=== PATIENT | male | born 1955 | race Caucasian/White ===

== ENCOUNTER 2017-12-26 07:29 | Day surgery (SDC) | payer OTHER, SELFPAY ==
[2017-12-19 13:16] VITALS: BMI 32.6
--- NOTE | 2017-12-26 08:32 | PM.PREOP ---
Pre-operative Note Interval Note Pre-op Check: Yes History & Physical Reviewed by Physician and Yes Exam Performed Changes: No
[2017-12-26] MEDS: LACTATED RINGERS 1,000 ML 42 ML IV (08:43)
[2017-12-26 08:47] VITALS: BP 130/81; PULSE 71; RESP 12; TEMP 36.2; O2SAT 98; BMI 32.6
[2017-12-26] MEDS: CEFAZOLIN 2 GM/100 ML FROZ.PIGGY IV (09:00)
--- NOTE | 2017-12-26 09:16 | SUR.OPER ---
Supine on padded OR bed, head on pillow, arms secured on padded arm boards at <90 degrees abduction, legs uncrossed, safety belt at thigh, tape over blanket over lower legs.
[2017-12-26] MEDS: BUPIVACAINE 0.25% (PF) VIAL 30 ML INJ (09:24)
[2017-12-26] MEDS: SODIUM CHLORIDE IRRIG SOLUTION 3,000 ML, EPINEPHrine 1 MG IRR (09:25)
[2017-12-26 10:37] VITALS: BP 107/77; PULSE 75; RESP 11; TEMP 36.2; O2SAT 97
--- NOTE | 2017-12-26 10:37 | PM.OP.1 ---
Operative Date/Time/Diagnoses Date of procedure: 12/26/17 Time of procedure: 08:57 Pre-op diagnosis: Left knee medial meniscus tear Post-op diagnosis: same Procedure & Clinicians Procedure: Left knee arthroscopic medial meniscus debridement Left knee arthroscopic synovectomy and fat pad debridement Same procedure as scheduled: Yes Indications: This is a 62-year-old male who began having medial sided knee pain in July 2017. It all began after a very mahad day out on his boat while fishing. He had episodic sharp pain medially and an aching sensation between the episodic pain. There been some effusions. His physical exam was concerning for a medial meniscus tear and the MRI showed a tear of the posterior horn that involved the medial meniscus root. His indication for surgery was potentially a root repair and a meniscus debridement if unrepairable. The risks, benefits, alternatives to surgery were discussed. The risks included pain, bleeding, infection, damage to nearby structures, lack of symptom relief, need for further procedures, DVT, PE, anesthetic risks. He signed a consent form. Surgeon: Hiram Dhaliwal Refrigeration Supervisor: Rainer Khan Click Yes if Unassisted: No Anesthesia Type: General and Local Operative Notes Findings: Examination under anesthesia: Range of motion 0-130 degrees. Stable to varus and valgus stressing at 0 and 30?. 1A Hakeem's. Negative pivot shift. Negative anterior drawer posterior drawer. Stable dial at 30 and 90?. Diagnostic arthroscopy: patellofemoral joint showed grade 1 softening with a few superficial cartilage lesions. The medial and lateral gutters were without loose body. Medial evangelina joint showed the femoral cartilage be intact and grade 1 softening of the tibial cartilage. The medial meniscus had a complex displaced tear involving the body posterior horn and a portion of the meniscal root. The root largely remained intact. And the complex tear was debrided. ACL intact. PCL intact. The notch showed large amount of fat pad and synovium that was debrided for both therapeutic and for visualization. The lateral hemijoint showed the meniscus to be intact with the femoral and tibial cartilage to be intact. Closure Type: primary Specimen(s): none sent Estimated Blood Loss (mL): 5 Blood products transfused: none Tourniquet time (min): 57 Procedure in detail: The patient was met in the preoperative hold area on the day of the procedure. Operative extremity was signed. Consent was verified. He desired to proceed. He was brought to the operating room and surrendered anesthesia. Once general anesthesia been obtained and examination under anesthesia was performed. He was then prepped and draped in the standard sterile fashion and a surgical time-out was held to confirm the patient procedure, identity, allergies, images, antibiotics. All were in agreement we proceeded. An Esmarch was used to exsanguinate the limb and the tourniquet was elevated 250 mm of mercury. A standard diagnostic arthroscopy was performed utilizing anterolateral and anteromedial portal sites. The anteromedial portal was created under direct visualization. I used a sucker shaver device to debride a portion of the fat pad and synovium. I then used a combination of 3.5 mm shaver and various biting devices to debride the inferior leaflet of the horizontal posterior horn tear as well as the free edge of the superior leaf that which was very thin and degenerative. I also used the probe to un flipped a portion of the meniscus body that was torn and scarred to the underside of the meniscus. I additionally used a biter to remove all unstable portions of the meniscus root and finalize my debridement with the sucker shaver. I took care to keep the device off of the cartilage and used a smaller shaving device to protect the cartilage. Satisfied with the debridement final images were taken and all fluid and instruments were removed from the knee. 3-0 Monocryl was placed under the skin for closure and Steri-Strips were applied. 15 cc of 0.25% Marcaine were placed about the incisions and a sterile dressing was placed. He was transferred to the recovery room without issue. Complications: none Condition: stable Disposition: same day surgery Plan for aftercare: Weight bear as tolerated. No impact activities until 6 weeks.
[2017-12-26 10:39] VITALS: BP 108/71; PULSE 72; RESP 9; O2SAT 94
[2017-12-26 10:41] VITALS: BP 130/83; PULSE 76; RESP 9; O2SAT 96
[2017-12-26 10:44] VITALS: BP 103/67; PULSE 83; RESP 14; TEMP 36.6; O2SAT 97
[2017-12-26 10:59] VITALS: BP 115/78; PULSE 76; RESP 16; TEMP 36.4; O2SAT 95
[2017-12-26] MEDS: OXYCODONE/ACETAMINOPHEN 5/325 TABLET 1 TAB PO (11:15)
== END 2017-12-26 11:31 | disposition home or self-care (01) ==
PROVIDERS: PCP Physician Assistant; Visit Provider Orthopaedic Surgery
PROC: (CPT 29870; principal; 2017-12-26 08:45)
DX: S83.242A Other tear of medial meniscus, current injury, left knee, initial encounter (principal)
CPT/HCPCS: 29881; J0171; J0690; J1100; J2405; J2704; J3010

== ENCOUNTER → 2020-05-19 07:43 | Outpatient (CLI) | payer MEDICARE, OTHER, SELFPAY ==
[2020-05-19 09:26] LABS: Add Manual Diff / Slide Review NO; Basophils Absolute Auto 0 /uL (0-100); Basophils Percent Auto 0.9 % (0-2); Eosinophils Absolute Auto 100 /uL (0-450); Eosinophils Percent Auto 1.9 % (2-4); Hematocrit 42.1 % (41-53); Lymphocytes Absolute Auto 1500 /uL (1100-4500); Lymphocytes Percent Auto 27.2 % (25-40); Mean Corpuscular HGB Conc 33.2 % (30-36); Mean Corpuscular Hemoglobin 29.8 PG (26-34); Mean Corpuscular Volume 89.6 fL (80-100); Monocytes Absolute Auto 400 /uL (0-900); Neutrophils Absolute Auto 3400 /uL (1500-7000); Platelet Count 228 X10^3/uL (150-400); Red Blood Cell Count 4.69 X10^6/uL (4.5-5.9); Red Cell Distribution Width 13.7 % (11.6-14.8); White Blood Cell Count 5.5 X10^3/uL (4.5-11.0)
[2020-05-19 09:52] LABS: Alanine Aminotransferase 24 IU/L (<50); Albumin 4.2 g/dL (3.5-5.0); Albumin Globulin Ratio 1.4 (1.0-2.8); Alkaline Phosphatase 76 U/L (38-126); Aspartate Aminotransferase 24 IU/L (17-59); BUN Creatinine Ratio 20.4 (6-22); Bilirubin Total 0.7 mg/dL (0.2-1.3); Blood Urea Nitrogen 20 mg/dL (9-20); Carbon Dioxide 27 mmol/L (22-32); Chloride 105 mmol/L (98-107); Cholesterol 179 mg/dL (140-199); Estimated Glomerular Filt Rate > 60.0 mL/min (>60); Globulin 3.1 g/dL (1.7-4.1); Glucose 104 mg/dL (80-110); HDL Cholesterol 39 mg/dL (40-60); HEMOLYSIS < 15 (0-50); LDL Cholesterol Calculated 128 mg/dL (<100); Potassium 4.1 mmol/L (3.4-5.1); Sodium 137 mmol/L (137-145); Total Protein 7.3 g/dL (6.3-8.2); Triglycerides 60 mg/dL (35-150)
[2020-05-19 09:54] LABS: Hemoglobin A1C% w Est Avg Glu 6.3 % (4.0-6.0)
[2020-05-19 10:21] LABS: TSH w/ Reflex to FT4 1.31 uIU/mL (0.47-4.68)
== END ==
PROVIDERS: PCP Family Medicine; Referring Provider Family Medicine; Visit Provider Family Medicine
DX: I10 Essential (primary) hypertension (principal); R73.03 Prediabetes; K22.70 Barrett's esophagus without dysplasia; R53.83 Other fatigue
CPT/HCPCS: 36415; 80053; 80061; 83036; 84443; 85025

== ENCOUNTER → 2020-05-31 09:51 | Outpatient (CLI) | payer MEDICARE, OTHER, SELFPAY ==
[2020-05-31 11:15] LABS: COVID19 -Nasal RAPID Negative (Negative)
== END ==
PROVIDERS: PCP Family Medicine; Visit Provider Nurse Practitioner
DX: Z01.812 Encounter for preprocedural laboratory examination (principal); Z20.822 Contact with and (suspected) exposure to COVID-19
CPT/HCPCS: 87635; C9803

== ENCOUNTER → 2020-06-01 07:28 | Outpatient (CLI) | payer MEDICARE, OTHER, SELFPAY ==
--- NOTE | 2020-06-01 08:45 | PM.TREADMILL ---
Cardiac Stress Test Report Referral & Results Date Patient Seen: 06/01/20 Time Patient Seen: 08:30 Requesting provider: Bam Vee Indication: Exercise intolerance Rest ECG: Normal sinus rhythm, rare PACs Procedure Note: Today following both written and verbal informed consent, the patient was exercised according to a standard Paul protocol. The patient exercised for a total of 6 minutes 50 seconds achieving a maximum heart rate of 144. Patient's maximum systolic blood pressure was 172. This was an estimated 10.1 METs. Marked exercise intolerance (FA I +40% on active scale). ST elevations in inferior leads at peak exercise; slow to resolve at rest. Prolonged bigeminy and peak exercise. Presenting symptoms of shortness of breath and fatigue for easily reproduced at exertion. Otherwise normal hemodynamic response to exercise. Impression: High probability for ischemia and exercise-induced arrhythmia. Recommend prompt cardiology referral. Please note: Actual ECG tracings can be found in the PACS system.
== END ==
PROVIDERS: PCP Family Medicine; Referring Provider Family Medicine; Visit Provider Family Medicine
DX: R53.83 Other fatigue (principal); K22.70 Barrett's esophagus without dysplasia; I10 Essential (primary) hypertension; R73.03 Prediabetes
CPT/HCPCS: 93016; 93017; 93018

== ENCOUNTER → 2020-06-29 08:40 | Outpatient (CLI) | payer MEDICARE, OTHER, SELFPAY ==
[2020-06-29 10:01] LABS: Alanine Aminotransferase 20 IU/L (<50); Albumin 4.1 g/dL (3.5-5.0); Albumin Globulin Ratio 1.2 (1.0-2.8); Alkaline Phosphatase 76 U/L (38-126); Aspartate Aminotransferase 26 IU/L (17-59); BUN Creatinine Ratio 21.9 (6-22); Bilirubin Total 0.2 mg/dL (0.2-1.3); Blood Urea Nitrogen 25 mg/dL (9-20); Carbon Dioxide 25 mmol/L (22-32); Chloride 106 mmol/L (98-107); Estimated Glomerular Filt Rate > 60.0 mL/min (>60); Globulin 3.3 g/dL (1.7-4.1); Glucose 111 mg/dL (80-110); HEMOLYSIS < 15 (0-50); Potassium 4.2 mmol/L (3.4-5.1); Sodium 138 mmol/L (137-145); Total Protein 7.4 g/dL (6.3-8.2)
== END ==
PROVIDERS: PCP Family Medicine; Referring Provider Family Medicine; Visit Provider Family Medicine
DX: I25.9 Chronic ischemic heart disease, unspecified (principal)
CPT/HCPCS: 36415; 80053

== ENCOUNTER → 2020-07-13 07:59 | Outpatient (CLI) | payer MEDICARE, OTHER, SELFPAY ==
--- NOTE | 2020-07-13 08:00 | DI.US.S_ITS ---
PROCEDURE: US ABDOMEN COMPLETE INDICATIONS: PAIN TECHNIQUE: Real-time scanning was performed of the abdominal and retroperitoneal organs, with image documentation. COMPARISON: None. FINDINGS: Liver: Liver is normal in size and homogeneous in echotexture. Gallbladder: Normally distended without wall thickening, sludge, stone, or pericholecystic fluid. Biliary ducts: Normal caliber. Pancreas: There is an approximately 5 millimeter hypoechoic focus in the pancreatic body anteriorly, nonspecific. Otherwise normal pancreas. Spleen: Spleen is normal in size and homogeneous in echotexture. Kidneys: Normal size and appearance. No shadowing calculus or hydronephrosis. Aorta: Visualized aorta is normal in caliber at less than 3 cm. Iliacs: Proximal common iliac arteries are normal in caliber at less than 2.5 cm. IVC: Intrahepatic inferior vena cava is patent. Miscellaneous: No free abdominal fluid. IMPRESSION: No acute finding. Approximately 5 millimeter hypoechoic focus in the anterior pancreatic body is nonspecific. This is favored to represent either a simple cyst or small IPMN. A follow-up pancreatic protocol CT is recommended in 2 years to document stability, per ACR recommendations. Dictated by: Roel Coley M.D. on 07/13/2020 at 8:58 Approved by: Roel Coley M.D. on 07/13/2020 at 9:18
== END ==
PROVIDERS: PCP Family Medicine; Referring Provider Family Medicine; Visit Provider Family Medicine
DX: R10.13 Epigastric pain (principal)
CPT/HCPCS: 76700

== ENCOUNTER → 2020-11-26 07:05 | Outpatient (CLI) | payer MEDICARE, OTHER, SELFPAY ==
[2020-11-26 09:37] LABS: Cholesterol 92 mg/dL (140-199); HDL Cholesterol 39 mg/dL (40-60); LDL Cholesterol Calculated 42 mg/dL (<100); Triglycerides 56 mg/dL (35-150)
== END ==
PROVIDERS: PCP Family Medicine; Referring Provider Family Medicine; Visit Provider Family Medicine
DX: E78.2 Mixed hyperlipidemia (principal)
CPT/HCPCS: 36415; 80061

== ENCOUNTER → 2021-03-18 08:31 | Outpatient (CLI) | payer MEDICARE, OTHER, SELFPAY ==
--- NOTE | 2021-03-18 08:33 | DI.ECHO.S_ITS ---
[place] +---------+ [facility] +---------+ : : [address] : : : : [id number] : : : : Phone: [phone]+ Echocardiogram Report + + :Name: ALMA KWOK Study Date: 03/18/2021 Height: 72 in : :[facility] ReadingLocation: Weight: 230 lb : : Gender: Male BSA: 2.3 m2 : :: 1955 Age: 66 yrs BP: 129/83 mmHg: :Reason For Study: ATHEROSCLEROTIC HEART DISEASE : :Ordering Physician: QUINTIN, : :MALINA Performed By: Vickie Styles : :Referring: MALINA RIBEIRO : + + Interpretation Summary Left ventricular ejection fraction is estimated to be 55 +/- 5%. Left ventricular wall motion is normal. Left ventricular systolic function has mildly improved compared to the previous exam. A patent foramen ovale is suspected. There is mild tricuspid regurgitation. Procedure: A two-dimensional transthoracic echocardiogram with color flow and Doppler was performed. The study quality was technically adequate. A contrast injection of Definity was performed to improve assessment of LV function. Comparison is made with the echocardiogram of 06/10/2020. The patient was in sinus rhythm with heart rates between 58-65 bpm during the exam. Left Ventricle: The left ventricle is normal in size and wall thickness. Left ventricular ejection fraction is estimated to be 55 +/- 5%. Left ventricular systolic function has mildly improved compared to the previous exam. Left ventricular wall motion is normal. Right Ventricle: The right ventricle is normal in size and function. Atria: The left atrial size is normal. Right atrial size is normal. A patent foramen ovale is suspected. Mitral Valve: There is mild mitral annular calcification. There is trace mitral regurgitation. Aortic Valve: The aortic valve is trileaflet. The aortic valve opens well. There is no aortic valve stenosis. No aortic regurgitation is present. Tricuspid Valve: The tricuspid valve is normal in structure and function. There is mild tricuspid regurgitation. Pulmonary artery pressures cannot be estimated because of the lack of a measurable TR jet velocity but the IVC suggests a CVP of around 3 mmHg. Pulmonic Valve: The pulmonic valve is not well visualized. There is no pulmonic valvular regurgitation. Great Vessels: The aortic root is normal size. The ascending aorta could not be visualized. The IVC is of normal diameter and collapses greater than 50% with a sniff. This suggests a low right atrial pressure of 3 mm Hg. Pericardium/ Pleura There is no pericardial effusion. There is no pleural effusion. MMode/2D Measurements & Calculations LVIDd: 3.9 cm LVOT diam: 2.1 cm LVIDs: 2.9 cm Ao root diam: 3.4 cm FS: 26.1 % Ao Arch Diam (Prox Trans): 2.8 cm IVSd: 0.93 cm LVPWd: 0.97 cm LV melton. diameter/BSA (cm/m^2): 1.7 LV sys. diameter/BSA (cm/m^2): 1.3 LA A2 area: 19.9 cm2 RA long axis: 5.6 cm LA A4 area: 21.1 cm2 RA area: 17.5 cm2 LA length (vol): 5.5 cm RA vol: 46.3 ml LA vol: 64.6 ml RA : 20.5 ml/m2 LA vol index: 28.6 ml/m2 IVC diam: 1.7 cm RVD1 (basal): 3.8 cm TAPSE: 1.6 cm Doppler Measurements & Calculations Ao V2 max: 112.8 cm/sec LVOT Max Brandon: 104.7 cm/sec Ao V2 mean: 81.6 cm/sec LV V1 max P.4 mmHg Ao max P.1 mmHg LV V1 VTI: 20.6 cm Ao mean P.9 mmHg EDWIN(I,D): 3.1 cm2 Ao V2 VTI: 22.7 cm EDWIN(V,D): 3.2 cm2 sev ratio: 0.91 EDWIN indexed to BSA (cm^2/m^2): 1.4 MV E max brandon: 62.3 cm/sec PA V2 max: 100.1 cm/sec MV A max brandon: 55.9 cm/sec PA V2 mean: 67.0 cm/sec MV E/A: 1.1 PA mean P.0 mmHg Med Peak E' Brandon: 7.6 cm/sec PA pr(Accel): 25.9 mmHg E/E' med: 8.2 Lat Peak E' Brandon: 12.9 cm/sec E/E' lat: 4.8 E/e' average: 6.5 MV dec time: 0.27 sec SVLVOT): 71.2 ml Reading Physician:
== END ==
PROVIDERS: PCP Family Medicine; Referring Provider Internal Medicine Cardiovascular Disease; Visit Provider Internal Medicine Cardiovascular Disease
DX: I07.1 Rheumatic tricuspid insufficiency (principal); I25.10 Atherosclerotic heart disease of native coronary artery without angina pectoris
CPT/HCPCS: 93306; Q9957

== ENCOUNTER → 2021-05-24 15:21 | Outpatient (CLI) | payer MEDICARE, OTHER, SELFPAY ==
[2021-05-24 16:58] LABS: Alanine Aminotransferase 28 IU/L (<50); Albumin 4.4 g/dL (3.5-5.0); Albumin Globulin Ratio 1.4 (1.0-2.8); Alkaline Phosphatase 74 U/L (38-126); Aspartate Aminotransferase 38 IU/L (17-59); BUN Creatinine Ratio 18.8 (6-22); Bilirubin Total 0.4 mg/dL (0.2-1.3); Blood Urea Nitrogen 18 mg/dL (9-20); Calcium 9.4 mg/dL (8.4-10.2); Carbon Dioxide 29 mmol/L (22-32); Chloride 104 mmol/L (98-107); Estimated Glomerular Filt Rate > 60.0 mL/min (>60); Globulin 3.2 g/dL (1.7-4.1); Glucose 104 mg/dL (80-110); HEMOLYSIS 26 (0-50); Potassium 3.9 mmol/L (3.4-5.1); Sodium 139 mmol/L (137-145); Total Protein 7.6 g/dL (6.3-8.2)
[2021-05-24 17:27] LABS: Prostate Specific Antigen Scrn 1.15 ng/mL (0.1-4.0)
== END ==
PROVIDERS: PCP Family Medicine; Referring Provider Family Medicine; Visit Provider Family Medicine
DX: Z12.5 Encounter for screening for malignant neoplasm of prostate (principal); E78.2 Mixed hyperlipidemia; I10 Essential (primary) hypertension; Z95.1 Presence of aortocoronary bypass graft
CPT/HCPCS: 36415; 80053; G0103

== ENCOUNTER → 2021-08-15 09:00 | Outpatient (CLI) | payer MEDICARE, OTHER, SELFPAY ==
--- NOTE | 2021-08-15 09:02 | DI.US.S_ITS ---
PROCEDURE: US SCROTUM INDICATIONS: RIGHT EPIDIDYMAL CYST TECHNIQUE: Real-time scanning was performed of the scrotum and testicles, with image documentation. Color and pulse Doppler interrogation was performed of both testicles. COMPARISON: None. FINDINGS: Right: Testicle is normal in size at 4.5 x 2.8 x 3.5 cm, and homogenous in echotexture. Several apparent spermatoceles can be seen involving the right epididymis, with the largest measuring up to 3.8 cm. No hydrocele or varicoceles. Overlying scrotal skin is normal in thickness. Left: Testicle is normal in size at 4.7 x 2.6 x 3.5 cm, and homogeneous in echotexture. Epididymis is normal in overall size and morphology. No hydrocele or varicoceles. Overlying scrotal skin is normal in thickness. Doppler: Color and pulse Doppler demonstrate normal and symmetric arterial flow in both testicles. IMPRESSION: Several large presumed spermatoceles are seen involving the right epididymis. The largest of these measures up to 3.8 cm. No intratesticular masses are seen. Dictated by: Jeff Márquez M.D. on 08/15/2021 at 9:36 Approved by: Jeff Márquez M.D. on 08/15/2021 at 9:37
== END ==
PROVIDERS: PCP Family Medicine; Referring Provider Family Medicine; Visit Provider Family Medicine
DX: L72.9 Follicular cyst of the skin and subcutaneous tissue, unspecified (principal)
CPT/HCPCS: 76870

== ENCOUNTER → 2021-09-29 07:05 | Outpatient (CLI) | payer MEDICARE, OTHER, SELFPAY ==
[2021-09-29 07:51] LABS: Add Manual Diff / Slide Review NO; Basophils Absolute Auto 0 /uL (0-100); Basophils Percent Auto 0.9 % (0-2); Eosinophils Absolute Auto 200 /uL (0-450); Eosinophils Percent Auto 3.9 % (2-4); Hematocrit 40.2 % (41-53); Hemoglobin 13.7 g/dL (13.5-17.5); Lymphocytes Absolute Auto 1700 /uL (1100-4500); Lymphocytes Percent Auto 31.5 % (25-40); Mean Corpuscular HGB Conc 34.1 % (30-36); Mean Corpuscular Hemoglobin 30.3 PG (26-34); Mean Corpuscular Volume 88.9 fL (80-100); Monocytes Absolute Auto 500 /uL (0-900); Monocytes Percent Auto 9.7 % (3-14); Neutrophils Absolute Auto 2900 /uL (1500-7000); Platelet Count 211 X10^3/uL (150-400); Red Blood Cell Count 4.52 X10^6/uL (4.5-5.9); Red Cell Distribution Width 13.8 % (11.6-14.8); White Blood Cell Count 5.3 X10^3/uL (4.5-11.0)
[2021-09-29 08:04] LABS: Alanine Aminotransferase 27 IU/L (<50); Albumin 4.2 g/dL (3.5-5.0); Albumin Globulin Ratio 1.4 (1.0-2.8); Alkaline Phosphatase 73 U/L (38-126); Aspartate Aminotransferase 26 IU/L (17-59); BUN Creatinine Ratio 22.2 (6-22); Bilirubin Total 0.6 mg/dL (0.2-1.3); Blood Urea Nitrogen 22 mg/dL (9-20); Calcium 8.7 mg/dL (8.4-10.2); Carbon Dioxide 26 mmol/L (22-32); Chloride 107 mmol/L (98-107); Cholesterol 113 mg/dL (140-199); Estimated Glomerular Filt Rate > 60 mL/min (>60); Globulin 3.1 g/dL (1.7-4.1); Glucose 123 mg/dL (80-110); HDL Cholesterol 34 mg/dL (40-60); HEMOLYSIS < 15 (0-50); LDL Cholesterol Calculated 66 mg/dL (<100); Magnesium 2.1 mg/dL (1.6-2.3); Potassium 4.1 mmol/L (3.4-5.1); Sodium 140 mmol/L (137-145); Total Protein 7.3 g/dL (6.3-8.2); Triglycerides 66 mg/dL (35-150)
[2021-09-29 09:06] LABS: TSH w/ Reflex to FT4 1.31 uIU/mL (0.47-4.68)
== END ==
PROVIDERS: PCP Family Medicine; Referring Provider Nurse Practitioner Family; Visit Provider Nurse Practitioner Family
DX: I10 Essential (primary) hypertension (principal); E78.5 Hyperlipidemia, unspecified; R00.2 Palpitations; Z95.1 Presence of aortocoronary bypass graft
CPT/HCPCS: 36415; 80053; 80061; 83735; 84443; 85025

== ENCOUNTER → 2021-12-02 08:54 | Outpatient (CLI) | payer MEDICARE, OTHER, SELFPAY ==
--- NOTE | 2021-12-02 08:56 | DI.RAD.S_ITS ---
PROCEDURE: XR LUMBAR SPINE 2-3V INDICATIONS: lower back pain TECHNIQUE: 3 views of the lumbar spine were acquired. COMPARISON: None. FINDINGS: Bones: 5 [id number] vertebrae are present. Minimal left convexity curvature centered at L3. 3 mm retrolisthesis L5 on S1, 5 mm retrolisthesis L3 on L4, 5 mm retrolisthesis L2 on L3, 3 mm retrolisthesis L1 on L2, likely degenerative. Moderate multilevel degenerative changes with disc height loss and endplate spurring, facet degenerative changes present at L4-5 and L5-S1. No vertebral body compression fractures. No suspicious bony lesions. Soft tissues: Overlying bowel gas pattern is normal. Vascular calcifications are present. IMPRESSION: 1. No acute lumbar spine fracture visualized. 2. Moderate multilevel degenerative changes of the lumbar spine. Dictated by: Nish Canela M.D. on 12/02/2021 at 17:14 Approved by: Nish Canela M.D. on 12/02/2021 at 17:21
== END ==
PROVIDERS: PCP Family Medicine; Referring Provider Family Medicine; Visit Provider Family Medicine
DX: M47.816 Spondylosis without myelopathy or radiculopathy, lumbar region (principal); M47.817 Spondylosis without myelopathy or radiculopathy, lumbosacral region; M54.50 Low back pain, unspecified
CPT/HCPCS: 72100

== ENCOUNTER → 2022-03-01 07:09 | Outpatient (CLI) | payer MEDICARE, OTHER, SELFPAY ==
[2022-03-01 09:00] LABS: Hemoglobin A1C% w Est Avg Glu 6.6 % (4.0-6.0)
[2022-03-01 09:27] LABS: Alanine Aminotransferase 26 IU/L (<50); Albumin Globulin Ratio 1.4 (1.0-2.8); Alkaline Phosphatase 82 U/L (38-126); Aspartate Aminotransferase 20 IU/L (17-59); BUN Creatinine Ratio 22.3 (6-22); Bilirubin Total 0.6 mg/dL (0.2-1.3); Blood Urea Nitrogen 21 mg/dL (9-20); Calcium 8.6 mg/dL (8.4-10.2); Carbon Dioxide 25 mmol/L (22-32); Chloride 105 mmol/L (98-107); Estimated Glomerular Filt Rate > 60 mL/min (>60); Globulin 2.9 g/dL (1.7-4.1); Glucose 110 mg/dL (80-110); HEMOLYSIS < 15 (0-50); Potassium 4.3 mmol/L (3.4-5.1); Sodium 138 mmol/L (137-145); Total Protein 6.9 g/dL (6.3-8.2)
== END ==
PROVIDERS: PCP Family Medicine; Referring Provider Family Medicine; Visit Provider Family Medicine
DX: R73.03 Prediabetes (principal)
CPT/HCPCS: 36415; 80053; 83036

== ENCOUNTER → 2022-06-28 07:03 | Outpatient (CLI) | payer MEDICARE, OTHER, SELFPAY ==
[2022-06-28 07:57] LABS: Hemoglobin A1C% w Est Avg Glu 6.6 % (4.0-6.0)
[2022-06-28 08:21] LABS: Alanine Aminotransferase 25 IU/L (<50); Albumin 3.9 g/dL (3.5-5.0); Albumin Globulin Ratio 1.3 (1.0-2.8); Alkaline Phosphatase 77 U/L (38-126); Aspartate Aminotransferase 20 IU/L (17-59); BUN Creatinine Ratio 23.6 (6-22); Bilirubin Total 0.7 mg/dL (0.2-1.3); Blood Urea Nitrogen 21 mg/dL (9-20); Calcium 8.5 mg/dL (8.4-10.2); Carbon Dioxide 25 mmol/L (22-32); Chloride 105 mmol/L (98-107); Estimated Glomerular Filt Rate > 60 mL/min (>60); Glucose 114 mg/dL (80-110); HEMOLYSIS < 15 (0-50); Potassium 4.1 mmol/L (3.4-5.1); Sodium 139 mmol/L (137-145); Total Protein 6.9 g/dL (6.3-8.2); Uric Acid 5.1 mg/dL (3.5-8.5)
[2022-06-28 08:31] LABS: TSH w/ Reflex to FT4 1.34 uIU/mL (0.47-4.68)
[2022-06-28 08:52] LABS: Prostate Specific Antigen Scrn 1.96 ng/mL (0.1-4.0)
== END ==
PROVIDERS: PCP Family Medicine; Referring Provider Family Medicine; Visit Provider Family Medicine
DX: Z00.00 Encounter for general adult medical examination without abnormal findings (principal); R73.03 Prediabetes; Z12.5 Encounter for screening for malignant neoplasm of prostate; E78.5 Hyperlipidemia, unspecified; I10 Essential (primary) hypertension; Z95.1 Presence of aortocoronary bypass graft
CPT/HCPCS: 36415; 80053; 83036; 84443; 84550; G0103

== ENCOUNTER → 2022-06-30 07:31 | Outpatient (CLI) | payer MEDICARE, OTHER, SELFPAY ==
[2022-06-30 08:36] LABS: Creatinine Urine Random 139.8 mg/dL
[2022-06-30 08:40] LABS: Microalbumin Urine Random 0.7 mg/dL (0-1.6)
== END ==
PROVIDERS: PCP Family Medicine; Referring Provider Family Medicine; Visit Provider Family Medicine
DX: R73.03 Prediabetes (principal)
CPT/HCPCS: 82043; 82570

== ENCOUNTER → 2022-12-07 08:40 | Outpatient (CLI) | payer MEDICARE, OTHER, SELFPAY ==
[2022-12-07 10:33] LABS: Hemoglobin A1C% w Est Avg Glu 6.4 % (4.0-6.0)
[2022-12-07 10:50] LABS: Alanine Aminotransferase 26 IU/L (<50); Albumin 4.1 g/dL (3.5-5.0); Albumin Globulin Ratio 1.5 (1.0-2.8); Alkaline Phosphatase 87 U/L (38-126); Aspartate Aminotransferase 20 IU/L (17-59); Bilirubin Total 0.7 mg/dL (0.2-1.3); Blood Urea Nitrogen 20 mg/dL (9-20); Calcium 8.9 mg/dL (8.4-10.2); Carbon Dioxide 26 mmol/L (22-32); Chloride 103 mmol/L (98-107); Cholesterol 111 mg/dL (140-199); Estimated Glomerular Filt Rate > 60 mL/min (>60); Globulin 2.8 g/dL (1.7-4.1); Glucose 107 mg/dL (80-110); HDL Cholesterol 37 mg/dL (40-60); HEMOLYSIS < 15 (0-50); LDL Cholesterol Calculated 58 mg/dL (<100); Potassium 4.3 mmol/L (3.4-5.1); Sodium 138 mmol/L (137-145); Total Protein 6.9 g/dL (6.3-8.2); Triglycerides 78 mg/dL (35-150)
[2022-12-07 10:53] LABS: NT-proBNP (BNP-Adult 18+) 64 pg/mL (<125)
== END ==
PROVIDERS: PCP Family Medicine; Referring Provider Family Medicine; Visit Provider Family Medicine
DX: E78.5 Hyperlipidemia, unspecified (principal); R73.03 Prediabetes; I10 Essential (primary) hypertension
CPT/HCPCS: 36415; 80053; 80061; 83036; 83880

== ENCOUNTER → 2023-05-31 08:49 | Outpatient (CLI) | payer MEDICARE, OTHER, SELFPAY ==
[2023-05-31 09:54] LABS: Add Manual Diff / Slide Review NO; Basophils Absolute Auto 0 /uL (0-100); Basophils Percent Auto 0.4 % (0-2); Eosinophils Absolute Auto 500 /uL (0-450); Eosinophils Percent Auto 9.9 % (2-4); Hematocrit 40.1 % (41-53); Hemoglobin 13.8 g/dL (13.5-17.5); Lymphocytes Absolute Auto 1300 /uL (1100-4500); Lymphocytes Percent Auto 23.2 % (25-40); Mean Corpuscular HGB Conc 34.5 % (30-36); Mean Corpuscular Hemoglobin 31.1 PG (26-34); Monocytes Absolute Auto 400 /uL (0-900); Monocytes Percent Auto 7.1 % (3-14); Neutrophils Absolute Auto 3300 /uL (1500-7000); Neutrophils Percent Auto 59.4 % (50-75); Platelet Count 234 X10^3/uL (150-400); Red Blood Cell Count 4.45 X10^6/uL (4.5-5.9); White Blood Cell Count 5.5 X10^3/uL (4.5-11.0)
[2023-05-31 10:10] LABS: Hemoglobin A1C% w Est Avg Glu 6.3 % (4.0-6.0)
[2023-05-31 10:16] LABS: Alanine Aminotransferase 28 IU/L (<50); Albumin 4.3 g/dL (3.5-5.0); Albumin Globulin Ratio 1.4 (1.0-2.8); Alkaline Phosphatase 70 U/L (38-126); Aspartate Aminotransferase 25 IU/L (17-59); BUN Creatinine Ratio 21.6 (6-22); Bilirubin Total 1.1 mg/dL (0.2-1.3); Blood Urea Nitrogen 19 mg/dL (9-20); Calcium 9.1 mg/dL (8.4-10.2); Carbon Dioxide 24 mmol/L (22-32); Chloride 104 mmol/L (98-107); Estimated Glomerular Filt Rate > 60 mL/min (>60); Glucose 114 mg/dL (80-110); HEMOLYSIS < 15 (0-50); Potassium 4.3 mmol/L (3.4-5.1); Sodium 139 mmol/L (137-145); Total Protein 7.3 g/dL (6.3-8.2)
== END ==
LOC: LAB 08:50
PROVIDERS: PCP Family Medicine; Referring Provider Family Medicine; Visit Provider Family Medicine
DX: K63.5 Polyp of colon (principal); E78.5 Hyperlipidemia, unspecified; K22.70 Barrett's esophagus without dysplasia; Z95.1 Presence of aortocoronary bypass graft
CPT/HCPCS: 36415; 80053; 83036; 85025

== ENCOUNTER → 2023-12-06 08:47 | Outpatient (CLI) | payer MEDICARE, OTHER, SELFPAY ==
[2023-12-06 10:13] LABS: Hemoglobin A1C% w Est Avg Glu 6.2 % (4.0-6.0)
[2023-12-06 10:28] LABS: Alanine Aminotransferase 29 IU/L (<50); Albumin 4.1 g/dL (3.5-5.0); Albumin Globulin Ratio 1.6 (1.0-2.8); Alkaline Phosphatase 75 U/L (38-126); Aspartate Aminotransferase 28 IU/L (17-59); BUN Creatinine Ratio 21.3 (6-22); Blood Urea Nitrogen 20 mg/dL (9-20); Calcium 8.9 mg/dL (8.4-10.2); Carbon Dioxide 24 mmol/L (22-32); Chloride 106 mmol/L (98-107); Estimated Glomerular Filt Rate > 60 mL/min (>60); Globulin 2.6 g/dL (1.7-4.1); Glucose 121 mg/dL (80-110); HEMOLYSIS < 15 (0-50); Potassium 4.7 mmol/L (3.4-5.1); Sodium 138 mmol/L (137-145); Total Protein 6.7 g/dL (6.3-8.2)
== END ==
LOC: LAB 08:48
PROVIDERS: PCP Family Medicine; Referring Provider Family Medicine; Visit Provider Family Medicine
DX: E11.9 Type 2 diabetes mellitus without complications (principal); E78.5 Hyperlipidemia, unspecified; I10 Essential (primary) hypertension
CPT/HCPCS: 36415; 80053; 83036

== ENCOUNTER → 2024-03-27 08:43 | Outpatient (CLI) | payer MEDICARE, OTHER, SELFPAY ==
--- NOTE | 2024-03-27 08:45 | DI.RAD.S_ITS ---
PROCEDURE: XR HAND LT MIN 3V INDICATIONS: eval L hand pain TECHNIQUE: 3 views of the hand(s) acquired. COMPARISON: None. FINDINGS: Bones: No fractures or dislocations. Carpal bones are normally aligned. No suspicious bony lesions. Soft tissues: No suspicious soft tissue calcifications. 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 No evidence of erosive arthritis. Dictated by: Anthony Bergeron M.D. on 03/27/2024 at 11:23 Approved by: Anthony Bergeron M.D. on 03/27/2024 at 11:24
== END ==
PROVIDERS: PCP Family Medicine; Referring Provider Family Medicine; Visit Provider Family Medicine
DX: M79.642 Pain in left hand (principal)
CPT/HCPCS: 73130

== ENCOUNTER → 2024-06-16 07:03 | Outpatient (CLI) | payer MEDICARE, OTHER, SELFPAY ==
[2024-06-16 08:25] LABS: Add Manual Diff / Slide Review NO; Basophils Absolute Auto 100 /uL (0-100); Basophils Percent Auto 0.7 % (0-2); Eosinophils Absolute Auto 300 /uL (0-450); Eosinophils Percent Auto 2.4 % (2-4); Hematocrit 38.8 % (41-53); Hemoglobin 13.5 g/dL (13.5-17.5); Lymphocytes Absolute Auto 1600 /uL (1100-4500); Mean Corpuscular HGB Conc 34.6 % (30-36); Mean Corpuscular Hemoglobin 31.1 PG (26-34); Mean Corpuscular Volume 89.8 fL (80-100); Monocytes Absolute Auto 600 /uL (0-900); Monocytes Percent Auto 5.4 % (3-14); Neutrophils Absolute Auto 8100 /uL (1500-7000); Neutrophils Percent Auto 76.5 % (50-75); Platelet Count 229 X10^3/uL (150-400); Red Blood Cell Count 4.33 X10^6/uL (4.5-5.9); Red Cell Distribution Width 13.7 % (11.6-14.8); White Blood Cell Count 10.6 X10^3/uL (4.5-11.0)
[2024-06-16 08:42] LABS: Alanine Aminotransferase 27 IU/L (<50); Albumin 4.1 g/dL (3.5-5.0); Albumin Globulin Ratio 1.5 (1.0-2.8); Alkaline Phosphatase 69 U/L (38-126); Aspartate Aminotransferase 25 IU/L (17-59); BUN Creatinine Ratio 20.9 (6-22); Bilirubin Total 0.8 mg/dL (0.2-1.3); Blood Urea Nitrogen 19 mg/dL (9-20); Calcium 8.9 mg/dL (8.4-10.2); Carbon Dioxide 21 mmol/L (22-32); Chloride 105 mmol/L (98-107); Cholesterol 96 mg/dL (140-199); Estimated Glomerular Filt Rate > 60 mL/min (>60); Globulin 2.7 g/dL (1.7-4.1); Glucose 115 mg/dL (80-110); HDL Cholesterol 36 mg/dL (40-60); HEMOLYSIS < 15 (0-50); LDL Cholesterol Calculated 48 mg/dL (<100); Lipase 267 U/L (23-300); Potassium 4.1 mmol/L (3.4-5.1); Sodium 137 mmol/L (137-145); Total Protein 6.8 g/dL (6.3-8.2); Triglycerides 62 mg/dL (35-150)
[2024-06-16 09:08] LABS: Prostate Specific Antigen Scrn 1.54 ng/mL (0.1-4.0)
== END ==
PROVIDERS: PCP Family Medicine; Referring Provider Family Medicine; Visit Provider Family Medicine
DX: E11.9 Type 2 diabetes mellitus without complications (principal); Z12.5 Encounter for screening for malignant neoplasm of prostate; E78.5 Hyperlipidemia, unspecified; R79.89 Other specified abnormal findings of blood chemistry; I10 Essential (primary) hypertension; R53.83 Other fatigue
CPT/HCPCS: 36415; 80053; 80061; 83036; 83690; 85025; G0103

== ENCOUNTER → 2024-07-04 06:45 | Outpatient (CLI) | payer MEDICARE, OTHER, SELFPAY ==
--- NOTE | 2024-07-04 06:46 | DI.US.S_ITS ---
PROCEDURE: US ABDOMEN LIMITED INDICATIONS: eval pancreatic cyst previously measuring 5-6 mm in diameter 07/13/20. TECHNIQUE: Real-time scanning was performed of the abdominal and retroperitoneal organs, with image documentation. COMPARISON: [facility], US, US ABDOMEN COMPLETE, 07/13/2020, 8:38. FINDINGS: Liver: Liver is normal in size and homogeneous in echotexture. Flow direction within the main portal vein is normal. Gallbladder: No gallstones. No wall thickening. No pericholecystic edema. Negative sonographic Wheat's sign. Biliary ducts: Intrahepatic bile ducts are non-dilated. Extrahepatic bile duct caliber measures 3.9 mm. Normal is 6-7 mm or less in diameter, or 10 mm or less post-cholecystectomy. Pancreas: Visualized portions of the pancreas are sonographically normal except for a small cyst at the pancreatic body is again seen measuring 5-6 mm in diameter and no solid mass lesion has developed.. Miscellaneous: No free abdominal fluid. IMPRESSION: Small pancreatic cysts persists at the pancreatic body seen also in 2020. 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 Dictated by: Anthony Bergeron M.D. on 07/04/2024 at 15:34 Approved by: Anthony Bergeron M.D. on 07/04/2024 at 15:37
--- NOTE | 2024-07-04 06:46 | DI.US.S_ITS ---
PROCEDURE: US SCROTUM INDICATIONS: eval scrotum TECHNIQUE: Real-time scanning was performed of the scrotum and testicles, with image documentation. Color and pulse Doppler interrogation was performed of both testicles. COMPARISON: [facility], , US SCROTUM, 08/15/2021, 9:20. FINDINGS: Right: Testicle is normal in size at 4.5 x 3.5 x 2.4 cm, and homogenous in echotexture. Epididymis is normal in overall size and morphology. Clusters of cysts are noted in right at the minimal tail region with the largest cyst measures 4.8 x 3.9 x 3.6 cm in size. Internal mole bile debris is noted. No hydrocele or varicoceles. Overlying scrotal skin is normal in thickness. Left: Testicle is normal in size at 5.2 x 3.2 x 2.2 cm, and homogeneous in echotexture. Epididymis is normal in overall size and morphology. No hydrocele or varicoceles. Overlying scrotal skin is normal in thickness. Doppler: Color and pulse Doppler demonstrate normal and symmetric arterial flow in both testicles. No inguinal hernia is seen. IMPRESSION: 1. Normal appearing bilateral testes. 2. Cluster of simple and slightly complex appearing cysts right epididymal tail region and measures up to 4.8 x 3.9 x 3.6 cm in size. No solid appearing epididymal lesion. 3. No significant varicoceles or hydroceles. Dictated by: Jose Durham M.D. on 07/04/2024 at 11:23 Approved by: Jose Durham M.D. on 07/04/2024 at 11:25
== END ==
PROVIDERS: PCP Family Medicine; Referring Provider Family Medicine; Visit Provider Family Medicine
DX: N50.3 Cyst of epididymis (principal); K86.2 Cyst of pancreas
CPT/HCPCS: 76705; 76870